=== PATIENT | male | born 1950 | race Caucasian/White ===

== ENCOUNTER 2018-12-28 12:22 | Outpatient (CLI) | payer MEDICARE | END 2018-12-28 23:59 | disposition home or self-care (01) | LOC: RAD 12:22 | PROVIDERS: ATTEND Family Medicine | DX: M19.031 Primary osteoarthritis, right wrist (principal) ==

== ENCOUNTER 2018-12-29 11:41 | Emergency (ER) | payer MEDICARE ==
[~2018-12-29] VITALS: Ht 175.3 cm; Wt 111.1 kg
[2018-12-29 11:46] VITALS: BP 170/119
== END 2018-12-29 13:51 | disposition home or self-care (01) ==
LOC: ED 13:35
DX: M25.532 Pain in left wrist (principal); M79.642 Pain in left hand
CPT/HCPCS: 99282